=== PATIENT | male | born 1965 | race Two or more races ===

== ENCOUNTER 2018-11-05 18:13 | Emergency (ER) | payer OTHER ==
[~2018-11-05] VITALS: Ht 167.6 cm; Wt 75.0 kg
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
[2018-11-05] MEDS ORDERED: LEVE500T53 PO (18:26)
--- NOTE | 2018-11-05 18:26 | NUR ---
patient now states he last took keppra yesterday, he believes 500 mg. he states that he has had two seizures in his life one four months ago and one two months ago, then today. he doesn't recall where he was when seizure happens but is aox4.
[2018-11-05] MEDS ORDERED: KETOROLAC 30 MG/1 ML IVPush ONE (18:30)
[2018-11-05] MEDS ORDERED: METOCLOPRAMIDE 5 MG/ML, 2ML IVPush ONE (18:30)
[2018-11-05] MEDS ORDERED: SODIUM CHLORIDE FLUSH 10ML SYR IVF ONE (18:30)
[2018-11-05] MEDS ORDERED: DIPHENHYDRAMINE 50 MG/ML, 1ML IVPush ONE (18:30)
--- NOTE | 2018-11-05 18:31 | NUR ---
labs drawn. patient leaving to ct scan.
[2018-11-05] MEDS ORDERED: DIPHENHYDRAMINE 50 MG/ML, 1ML ONE (18:34)
[2018-11-05] MEDS ORDERED: KETOROLAC 30 MG/1 ML ONE (18:34)
[2018-11-05] MEDS ORDERED: METOCLOPRAMIDE 5 MG/ML, 2ML ONE (18:34)
[2018-11-05] MEDS ORDERED: PLEASE ENTER ALLERGIES MC SCH ×2 (19:00→20:30)
--- NOTE | 2018-11-05 19:02 | NUR ---
REPORT RECEIVED FROM RICKY YANEZ. ASSUMED CARE OF PT. PT RESTING ON GURNEY IN NAD. SEIZURE PRECAUTIONS IN PLACE. NSR ON MONITOR WITH NO ST CHANGES OR ECTOPY NOTED. ALL TESTING COMPLETE, AWAITING RESULTS AT THIS TIME. PT MEDICATED PER EMAR BY DAY SHIFT NURSE.
[2018-11-05 19:08] LABS: BASOPHILS # (AUTO) 0.04 x10^3/uL (0-0.1); BASOPHILS % (AUTO) 1 % (0-1); EOSINOPHILS # (AUTO) 0.12 x10^3/uL (0-0.4); EOSINOPHILS % (AUTO) 2 % (1-7); LYMPHOCYTES # (AUTO) 2.31 x10^3/uL (1-3.4); LYMPHOCYTES % (AUTO) 37 % (22-44); MD NO; MEAN CORPUSCULAR HEMOGLOBIN 33.5 pg (27.5-34.5); MEAN CORPUSCULAR HGB CONC 34.9 g/dL (33.2-36.2); MEAN CORPUSCULAR VOLUME 95.9 fL (81-97); MEAN PLATELET VOLUME 8.4 fL (7.4-10.4); MONOCYTES # (AUTO) 0.61 x10^3/uL (0.2-0.8); MONOCYTES % (AUTO) 10 % (2-9); NEUTROPHILS # (AUTO) 3.15 x10^3/uL (1.8-6.8); NEUTROPHILS % (AUTO) 51 % (42-75); PLATELET COUNT 231 x10^3/uL (130-400); RED BLOOD COUNT 4.74 x10^6/uL (4.38-5.82)
[2018-11-05 19:16] LABS: ALBUMIN 4.1 g/dL (3.4-5.0); ANION GAP 12 mmol/L (5-15); CHLORIDE 105 mmol/L (98-107)
[2018-11-05 19:18] LABS: CREATININE 1.15 mg/dL (0.7-1.3)
--- NOTE | 2018-11-05 20:01 | NUR ---
PT SLEEPING. RESPIRATIONS EVEN AND UNLABORED. VITALS STABLE. WILL CONTINUE TO MONITOR. CHART UP FOR RECHECK
--- NOTE | 2018-11-05 20:24 | NUR ---
DR. PEREZ AT BEDSIDE EVALUATING PT. PT REPORTS A RELIEF IN [place]. DENIES ANY OTHER NEEDS AT THIS TIME. PT TO BE DISCHARGED.
[2018-11-05 20:40] VITALS: BP 100/56
--- NOTE | 2018-11-05 21:01 | NUR ---
AWAITING DC PAPERWORK AT THIS TIME
--- NOTE | 2018-11-05 21:44 | NUR ---
Patient/Caregiver given discharge instructions and they have confirmed that they understand the instructions. Patient ambulatory with steady gait.
== END 2018-11-05 21:46 | disposition home or self-care (01) ==
LOC: ED 21:40
DX: R51 Headache (principal)
CPT/HCPCS: 36415; 70450; 80048; 82040; 85025; 96374; 96375; 99284; J1200; J1885; J2765